=== PATIENT | male | born 1980 | race African-American/Black ===

== ENCOUNTER 2016-09-29 23:05 | Emergency (ER) | payer MEDICAID, OTHER ==
[~2016-09-29] VITALS: Ht 175.3 cm; Wt 83.9 kg
[~2016-09-29 23:05] MED LIST: ABILIFY10 MG ORAL; MIRTAZAPINE15 MG ORAL
[2016-09-29 23:20] VITALS: BP 133/83
[2016-09-30] VITALS (8 sets, daily range): BP systolic 101–125; BP diastolic 59–80
[2016-09-30 00:43] LABS: MEAN CORPUSCULAR HEMOGLOBIN 14.9 PG (27.0-31.0); MEAN CORPUSCULAR HGB CONC 25.3 G/DL (32.0-36.0); MEAN CORPUSCULAR VOLUME 59 FL (80-99); MEAN PLATELET VOLUME 5.2 FL (6.5-10.1); PLATELET COUNT 637 K/UL (150-450); RED BLOOD COUNT 2.81 M/UL (4.70-6.10); RED CELL DISTRIBUTION WIDTH 28.4 % (11.6-14.8); WHITE BLOOD COUNT 6.1 K/UL (4.8-10.8)
[2016-09-30 01:03] LABS: PROTHROMBIN TIME 10.4 SEC (9.30-11.50)
--- NOTE | 2016-09-30 01:06 | Emergency Room Report ---
History of Present Illness General Chief Complaint: Dyspnea/Respdistress Source: Patient, Family Member Present Illness HPI 36YOM with 1 month, shortness of breath on walking long distance, frequent pausing to catch breath. History of iron deficiency anemia, non compliant with iron pills. Has been transfused previously. C/o "months" of blood in stool, known hemorrhoids. Denies history of stomach ulcers, other known sources of bleeding. + smoker. No asthma. No other medical problems. Allergies: Coded Allergies: No Known Allergies (Unverified , 12/04/13) Patient History Past Medical History: other - anemia Past Surgical History: none Pertinent Family History: none Social History: Reports: smoking, Denies: alcohol use, drug use Immunizations: UTD Reviewed Nursing Documentation: PMH: Agreed, PSxH: Agreed Nursing Documentation-PMH Past Medical History: No Stated History Review of Systems All Other Systems: negative except mentioned in HPI Physical Exam Vital Signs Date Time Temp Pulse Resp B/P Pulse Ox O2 Delivery O2 Flow Rate FiO2 09/29/16 23:16 97.9 112 22 133/83 99 Room Air Sp02 EP Interpretation: reviewed, abnormal General Appearance: normal inspection, well appearing, no apparent distress, alert, GCS 15, non-toxic Head: normocephalic, atraumatic Eyes: bilateral eye EOMI, bilateral eye PERRL, bilateral eye conjunctivae pale ENT: normal ENT inspection, hearing grossly normal, normal voice Neck: normal inspection, full range of motion, supple, no bony tend Respiratory: normal inspection, lungs clear, normal breath sounds, no respiratory distress, no retraction, no wheezing Cardiovascular #1: regular rate, rhythm, no edema Gastrointestinal: normal inspection, normal bowel sounds, non tender, soft, no guarding, no hernia Genitourinary: no CVA tenderness Musculoskeletal: normal inspection, back normal, normal range of motion, Leeann' s Sign negative Neurologic: normal inspection, alert, oriented x3, responsive, 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 VS notable for tachycardia Hb/Hct critically low on testing here Also with platelet count ~600 Will Transfuse and admit to med /surg bed Insurance requested transfer Endorsed to Dr Muller at 5am to [facility] Last Vital Signs Date Time Temp Pulse Resp B/P Pulse Ox O2 Delivery O2 Flow Rate FiO2 09/29/16 23:30 99 18 Room Air 09/29/16 23:20 97.9 133/83 97 Status: improved Disposition: ADMITTED INPATIENT Condition: Serious Referrals: [facility],REFERRING (PCP) KALEB BECKER M.D. Sep 30, 2016 01:05
[2016-09-30 01:09] LABS: ALANINE AMINOTRANSFERASE 54 U/L (3-41); ALBUMIN/GLOBULIN RATIO 1.3 (1.0-2.7); ANION GAP 18 (5-15); ASPARTATE AMINO TRANSFERASE 63 U/L (5-40); CALCIUM 9.2 mg/dL (8.6-10.2); CARBON DIOXIDE 26 mEQ/L (20-30); CHLORIDE 96 mEQ/L (98-107); CREATININE 0.7 mg/dL (0.7-1.2); GLOMERULAR FILTRATION RATE > 60 mL/min (>60); HEMOLYSIS 0; POTASSIUM 3.4 mEQ/L (3.4-4.9); SODIUM 140 mEQ/L (135-145); TOTAL PROTEIN 7.9 g/dL (6.6-8.7)
[2016-09-30 01:44] LABS: BAND NEUTROPHILS % (MANUAL) 1 % (0-8); BASOPHILS % (MANUAL) 2 % (0-2); LYMPHOCYTES % (MANUAL) 25 % (20-45); NEUTROPHILS % (MANUAL) 53 % (45-75); TOTAL CELLS COUNTED 100
[2016-09-30 01:45] LABS: ANISOCYTOSIS 2+; EOSINOPHILS % (MANUAL) 0 % (0-3); PLATELET ESTIMATE INCREASED; PLATELET MORPHOLOGY NORMAL; POIKILOCYTOSIS 2+; STOMATOCYTES 1+
[2016-09-30 01:46] LABS: OVALOCYTES 2+; TEAR DROP CELLS 1+
[2016-09-30 02:12] LABS: CKMB < 1.5 ng/mL (< 6.7)
--- NOTE | 2016-10-04 22:41 | Cardiology Report ---
APPROVED REPORT EKG Measurement Heart [id number] NC [id number] Normal sinus rhythm Normal ECG
== END 2016-09-30 07:24 | disposition short-term general hospital (02) ==
LOC: EMR 23:35
DX: D50.0 Iron deficiency anemia secondary to blood loss (chronic) (principal); D47.3 Essential (hemorrhagic) thrombocythemia
CPT/HCPCS: 36415; 80053; 82550; 82553; 85007; 85025; 85610; 85730; 86850; 86900; 86901; 86920; 93005; 99285; P9016